=== PATIENT | female | born 1990 | race Caucasian/White ===

== ENCOUNTER → 2017-10-28 11:29 | Outpatient (CLI) | payer MEDICAID, SELFPAY ==
[2017-10-28 12:19] LABS: Absolute Lymphocyte Count 2.61 X10^3/ul (0.83-4.51); Absolute Neutrophil Count 4.8 X10^3/uL (2.0-7.7); Basophil# 0.05 X10^3/uL; Basophil% 0.6 % (0-1); Eosinophil# 0.11 X10^3/uL; Eosinophils% 1.4 % (0-5); Hematocrit 43.1 % (37-47); Hemoglobin 14.6 g/dl (12.0-15.0); Lymphocyte # 2.61 X10^3/ul (4.0); Lymphocyte % 32.1 % (19-41); Mean Corp Hgb Conc 33.9 g/gl (32-36); Mean Corpuscular Hgb 28.1 pg (27.0-32.0); Mean Platelet Vol. 10.8 fl (6.2-12.0); Monocyte# 0.57 X10^3/uL; Neutrophil # 4.78 X10^3/uL (2.7-7.7); Neutrophil % 58.8 % (47-70); POSITIVE COUNT NO; POSITIVE DIFFERENTIAL NO; POSITIVE MORPHOLOGY NO; Platelet Count 352 K/mm3 (150-450); RBC Distribution Width CV 13.1 % (11.6-14.6); RBC Distribution Width SD 40.4 fl (35.1-43.9); Red Blood Count 5.19 M/mm3 (4.2-5.4); White Blood Count 8.1 K/mm3 (4.4-11.0)
[2017-10-28 12:36] LABS: Hemoglobin A1c 5.2 % (4.2-6.3)
[2017-10-28 12:40] LABS: ALB/GLOB Ratio 0.8 RATIO (0.9-2.4); AST(SGOT) 15 U/L (15-37); Alanine Aminotransfer ALT/SGPT 19 U/L (13-56); Albumin, Serum 3.3 g/dL (3.2-5.0); Alkaline Phosphatase 99 U/L (45-117); Anion Gap 8 (5-15); BUN 9 mg/dL (7-18); BUN/Creat Ratio 12.1 RATIO (10-20); Calcium,Total 8.4 mg/dL (8.5-10.1); Chloride 107 mmol/L (98-107); Cholesterol 151 mg/dL (200); Creatinine, Serum 0.74 mg/dL (0.55-1.02); EST Glomerular Filtration Rate 101 mL/min (>60); Est Glom Filt Rate - Afr Amer 122 mL/min (>60); Globulin 4.3 g/dL (2.2-4.2); Glucose 83 mg/dL (74-106); High Density Lipoprotein 32 mg/dL; Potassium 4.1 mmol/L (3.5-5.1); Protein, Total 7.6 g/dL (6.4-8.2); Sodium Level 140 mmol/L (136-145); T4 Free Direct 1.05 ng/dL (0.76-1.46); Triglycerides 91 mg/dL; Very Low Density Lipoprotein 18 mg/dL (5-40)
== END ==
PROVIDERS: Family Provider Internal Medicine; PCP Internal Medicine; Visit Provider Internal Medicine
DX: E28.2 Polycystic ovarian syndrome (principal); R73.03 Prediabetes; D64.9 Anemia, unspecified
CPT/HCPCS: 36415; 80053; 80061; 83036; 84439; 84443; 85025

== ENCOUNTER → 2018-03-17 10:51 | Outpatient (CLI) | payer BC, SELFPAY ==
[2018-03-17 15:49] VITALS: BMI 36.9
== END ==
PROVIDERS: Family Provider Internal Medicine; PCP Internal Medicine; Referring Provider Nurse Practitioner Family; Visit Provider Nurse Practitioner Family
DX: J02.9 Acute pharyngitis, unspecified (principal)
CPT/HCPCS: 87070; 87077; 87186

== ENCOUNTER → 2018-04-14 17:24 | Outpatient (CLI) | payer BC, SELFPAY ==
[2018-04-14 15:06] VITALS: BMI 36.9
[2018-04-19 13:21] LABS: HPV Reflexed? NOT INDICATED
--- OUTSIDE RECORDS SUMMARY | 2018-06-19 16:40 | XMS RPT_ITS ---
:1990 Author Organization OHIP Support Name Relationship Address Phone [employer] Unavailable [address] + [place] [address] MELVI JOIE Unavailable [address] [place] [address] [employer] Unavailable [address] + [place] [address] MELVI, JOIE Unavailable [address] [place] [address] [employer] Unavailable [address] + [place] [address] MELVI, JOIE Unavailable [address] + [place] [address] [employer] Unavailable [address] + [place] [address] MELVI, JOIE Unavailable [address] + [place] [address] [employer] Unavailable [address] + [place] [address] MELVI JOIE Unavailable [address] + [place] [address] [employer] Unavailable [address] + [place] [address] MELVI JOIE Unavailable [address] + [place] [address] [employer] [employer] Unavailable [address] + [place] [address] NABILA OGDENNN Unavailable [address] + [place] [address] [facility] OUTLET Unavailable [address] + [place] [address] JOIE OGDEN Unavailable [address] + [place] [address] [facility] [place] Unavailable Unavailable +. ., [place] . NABILA OGDENNN Unavailable [address] + [place] [address] Care Team Providers Name Role Phone Theresa Santacruz Attending Unavailable Oleghe, Efewongbe Referring Unavailable Noam, Molly Attending Unavailable Oleghe, Efewongbe Primary Care Unavailable [place]olisTheresa flores Referring Unavailable Oleghe, Efewongbe Attending Unavailable Oleghe, Efewongbe Referring Unavailable Oleghe, Efewongbe Attending Unavailable Oleghe, Efewongbe Referring Unavailable Oleghe, Efewongbe Primary Care Unavailable ThermopolisTheresa flores Attending Unavailable Ladarius, Roge Referring Unavailable Oleghe, Efewongbe Primary Care Unavailable Oleghe, Efewongbe Attending Unavailable Oleghe, Efewongbe Referring Unavailable Oleghe, Efewongbe Primary Care Unavailable Oleghe, Efewongbe Attending Unavailable Ladarius, Roge Referring Unavailable Ladarius, Roge Primary Care Unavailable Chi Garcia TRANSITION ADVISOR-C Attending Unavailable GarciaChi TRANSITION ADVISOR-C Referring Unavailable Oleghe, Efewongbe Primary Care Unavailable GarciaChi barba TRANSITION ADVISOR-C Attending Unavailable Oleghe, Efewongbe Referring Unavailable PROBLEMS PROBLEMS DATE TYPE CONDITION / CODE ATTENDING STATUS SOURCE 04/15/2018 Unknown Z12.4 - Encounter Theresa Santacruz Active [place] for screening for Community malignant Hospital neoplasm of Repository cervix / Z12.4(ICD-10) 03/18/2018 Unknown J02.9 - Acute Chi Garcia Active [place] pharyngitis, TRANSITION ADVISOR-C Community unspecified / Hospital J02.9(ICD-10) Repository 10/27/2017 Unknown R73.03 - Oleghe, Active [place] Prediabetes / E[facility] Community R73.03(ICD-10) Hospital Repository 10/27/2017 Unknown E28.2 - Oleghe, Active [place] Polycystic Efewongbe [facility] ovarian syndrome Hospital / E28.2(ICD-10) Repository 10/27/2017 Unknown D64.9 - Anemia, Marvin, Active [place] unspecified / Susan [facility] D64.9(ICD-10) Hospital Repository PROCEDURES PROCEDURES No Procedure Records FoundRESULTS RESULTS INTERNAL MEDICINE Observed: 04/20/2018 Status: F Source: [place] OFFICE VISIT 4:23 PM [facility] REPOSITORY [facility] [address] [place] [address] [place] [address] OFFICE VISIT Date of Service: 04/19/18 MR#: [id number] Acct: [id number] Name: YOLI OGDEN Rep #: [id number] : 1990 Provider: Susan Wong MD Age/Sex: 27/F Location: [facility] Status: Signed Intake Vital Signs04/19/18 Body Mass Index (BMI) 36.9 04/19/18 Height 5 ft 11 in Intake Visit Reasons: sick Chief Complaint: sinus and cough Is patient in pain?: Yes (headache and chest pain with cough ) Allergies grass pollen Allergy (Mild, Verified 04/14/18 15:03) watery eyes, sneezing hydrocodone bitartrate [From Vicodin] Allergy (Verified 04/14/18 15:03) Hives animal long hair Allergy (Intermediate, Uncoded 03/17/18 15:51) Hives Medications metformin 500 mg tablet 500 mg PO QDAY #90 tab 02/11/18 [Rx Confirmed 04/14/18] Is last menstrual period known: Yes PFSH Medical History High blood pressure affecting , antepartum (Chronic) Hidradenitis (Chronic) Asthma (Chronic) Anemia (Chronic) Seasonal allergies (Chronic) PCOS (polycystic ovarian syndrome) (Acute) Surgical History History of cholecystectomy (Acute) Family History Grandfather Angina pectoris Myocardial infarction Hypertension COPD (chronic obstructive pulmonary disease) From [place] CVA (cerebral vascular accident) Grandmother Lupus PCOS (polycystic ovarian syndrome) Diabetes Grandmother Rheumatoid arthritis Cervical cancer Mother Hypertension hormone probms PCOS (polycystic ovarian syndrome) Thyroid cancer Sister Multiple allergies Social History Smoking Status: Never smoker alcohol intake: current alcohol intake frequency: holidays/special occasions only substance use type: does not use caffeine: Yes what type of physical activity do you participate in: none, walking frequency: 3-4 times per week seatbelt use: always do you feel safe at home: Yes additional social history: [employer] 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 Kids have also recently had similar symptoms and negative for influenza. She denies recorded fever. ROS Const Constitutional: Positive for headache(s); no weight change, body ache, chills, fatigue, sleep problems, fever(s), change in appetite, snoring, weakness, frequent falls or excessive sweating Eyes Eyes: No change in vision, eye pain, light sensitivity or blurry vision ENT ENT: Positive for headache(s), ear pain (both), nasal congestion, nasal discharge and sinus pain; no abnormal hearing, tinnitus, sore throat or neck pain Resp Respiratory: Positive for cough Cough: Yes productive and wheezing; no snoring or shortness of breath Cardio Cardiology: No excessive sweating, chest pain at rest, chest pain with exertion, shortness of breath, dyspnea on exertion, palpitations, orthopnea or lightheadedness Gastro GI: No abdominal pain, change in bowel habits, constipation, diarrhea, vomiting, nausea/dyspepsia or cramping Genitourinary-Female: No burning urination, painful urination, urinary incontinence, urinary frequency, abnormal vaginal bleeding, pelvic pain or other Musc Musculoskeletal: No neck pain, abnormal walking, joint pain, back pain, limited range of motion, numbness or tingling Skin Skin: No redness, dry skin, itching, lesions, wounds or rash Neuro Neurology: Positive for headache(s); no weakness, frequent falls, abnormal hearing, abnormal walking, numbness, tingling, abnormal speech, dizziness or memory loss Psych Psychiatric: No change in appetite, No memory loss, No anxiety, No depression, No Thoughts of harming yourself/Others Endo Endocrine: No fatigue, excessive sweating, cold intolerance, increased thirst/drinking, heat intolerance, flushing or increased hunger Aller/Imm Allergy/Immunologic: Positive for wheezing; no itchy eyes, hives or seasonal allergy symptoms Jamil/Lymp Hematologic/Lymphatic: No easy bleeding, easy bruising or enlarged lymph nodes Exam Const General: cooperative, no acute distress Orientation: alert, awake, oriented x3 HENMT Head: atraumatic, normocephalic, normal to inspection Ears: hearing grossly normal bilaterally, TM's normal bilaterally Resp Effort AND Inspection: normal respiratory effort, able to speak in complete sentences Auscultation: Bilateral: Clear to Auscultation Cardio Rate: regular rate Rhythm: regular rhythm Heart Sounds: S1 normal, S2 normal GI Palpation: soft Neuro General: alert, awake, oriented x3, moves all extremities, CN's II-XI intact bilaterally Extrem General: no clubbing, cyanosis or edema Psych Appearance: grossly normal Mental Status: mental status grossly normal Mood: congruent mood Affect: normal affect Assessment AND Plan 1. Upper respiratory infection J06.9 Plan Most likely viral. History of sick contacts (her kids) who also been managed for viral infection. Conservative management discussed. Advised to call the office if she notes worsening or persistent symptoms. 2. Acute sinusitis J01.90 Plan Same as above. Most likely viral. Flonase, ibuprofen 600 mg 3 times daily with food, rest and increased fluid intake recommended. Airborne immune supplements also recommended. Advised to call the office in about 7-10 days if symptoms do not resolve. This note was generated with Zing dictation software. It may contain incorrect words, spelling, and punctuation that were not noted in checking the note before signing. 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 of containers..01 ThinPrep Vial TYPE CODE TESTS RESULT OUT OF RANGE REFERENCE UNITS LAB L7400.0800 . Normal DIAGN Comment Result Comment: NEGATIVE FOR INTRAEPITHELIAL LESION OR MALIGNANCY. LAB L7400.0900 . Normal ADEQ Comment Result Comment: Satisfactory for evaluation. Endocervical and/or squamous metaplastic cells (endocervical component) are present. LAB L7400.1400 . Normal PERFORM Comment Result Comment: Milly Garcia, News Specialist (ASCP) LAB L7400.2575 . Normal TEST METHOD Comment Result Comment: This liquid based ThinPrep(R) pap test was screened with the use of an image guided system. LAB L7400.2600 . Normal . COMM LAB L7400.2700 . Normal PAPSMR Comment Result Comment: The Pap smear is a screening test designed to aid in the detection of premalignant and malignant conditions of the uterine cervix. It is not a diagnostic procedure and should not be used as the sole means of detecting cervical cancer. Both false-positive and false-negative reports do occur. LAB L7400.2800 . Normal HPV RFLX Comment Result Comment: The HPV DNA reflex criteria were not met with this specimen result therefore, no HPV testing was performed. 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 Required: No Is patient in pain?: No Allergies grass pollen Allergy (Mild, Verified 04/14/18 15:03) watery eyes, sneezing hydrocodone bitartrate [From Vicodin] Allergy (Verified 04/14/18 15:03) Hives animal long hair Allergy (Intermediate, Uncoded 03/17/18 15:51) Hives Medications metformin 500 mg tablet 500 mg PO QDAY #90 tab 02/11/18 [Rx Confirmed 04/14/18] doxycycline monohydrate 100 mg capsule 100 mg PO BID #20 cap 04/14/18 [Rx Confirmed 04/14/18] Is last menstrual period known: Yes Last Menstral Period: 04/05/18 Post menopausal: No Patient : No : No Nurse's Note: Pt states she is no longer taking the BC and has been getting migraines. [facility] Medical History High blood pressure affecting , antepartum (Chronic) Hidradenitis (Chronic) Asthma (Chronic) Anemia (Chronic) Seasonal allergies (Chronic) PCOS (polycystic ovarian syndrome) (Acute) Surgical History History of cholecystectomy (Acute) Family History Grandfather Angina pectoris Myocardial infarction Hypertension COPD (chronic obstructive pulmonary disease) From [place] CVA (cerebral vascular accident) Grandmother Lupus PCOS (polycystic ovarian syndrome) Diabetes Grandmother Rheumatoid arthritis Cervical cancer Mother Hypertension hormone probms PCOS (polycystic ovarian syndrome) Thyroid cancer Sister Multiple allergies Social History Smoking Status: Never smoker alcohol intake: current alcohol intake frequency: holidays/special occasions only substance use type: does not use caffeine: Yes what type of physical activity do you participate in: none, walking frequency: 3-4 times per week seatbelt use: always do you feel safe at home: Yes additional social history: [employer] Patient works [employer] Pregancy History 3 Elective abortions Hx Para 2 Spontaneous abortions Past Pregnancies Del. DateName GA/Weeks Outcome Route Bth WeighInfant GeLabor LgtAnesthesiDel LocatProvider FOB t n h a n HPI ANNUAL: Details: YOLI OGDEN is a 27 year old who presents for annual exam. Last PAP: unsure History of abnormal PAP: no Stopped OCP due to migraines. Did not feel that hidradenitis improved with OCP or doxy X 30 days. Not currently sexually active- working in [place] Attempting to lose weight. Female Reproductive History Last Menstral Period: 04/05/18 Questions: Metorrhagia: No, Sexually active: No, Dyspareunia: No, PCB: No ROS Const Constitutional: Denies fatigue, weight gain or weight loss Cardio Card: Denies chest pain Resp Resp: Denies cough or shortness of breath with activity GI GI: Denies abdominal pain, constipation, change in stools, vomiting or bloating : Reports as per HPI; denies urinary frequency, pelvic pain, urinary urgency, vaginal discharge, vaginal itching, urinary incontinence or difficulty urinating Exam Const General: cooperative, healthy appearing, no acute distress, well developed Orientation: alert, oriented to person, oriented to place [facility] Head: normal to inspection Neck Neck: normal visual inspection Thyroid: thyroid normal Lymphatic: no lymphadenopathy noted Chest Breast inspection: normal inspection of the breasts, abnormal inspection of the axilla (active hidradenitis lesion left axilla-raised, erythematous 1cm size) Breast palpation: normal palpation of the breasts, no axillary lymphadenopathy, abnormal palpation of the axilla (consistent with hidradenitis left axilla) Resp Effort AND Inspection: normal respiratory effort GI Palpation: soft, nontender, no masses Rectal Exam: deferred External Female Exam: normal appearance of the urethra, other (hidradenitis lesion on mons) Urethra: normal appearance of the urethra, normal palpation Speculum Exam - Vagina: normal appearance of the vagina, normal vaginal discharge Speculum Exam - Cervix: normal appearance of the cervix Bimanual Exam- Vagina AND Uterus: normal bimanual exam, uterine size normal, uterine shape normal, uterus non-tender Bimanual Exam- Adnexa, other: normal adnexae, no adnexal masses, adnexae non-tender, pelvic support normal Pelvic Support: normal Neuro General: alert, oriented x3 Psych Affect: normal affect Assessment AND Plan Problems 1. Encounter for gynecological examination with abnormal finding Z01.411 2. Hidradenitis suppurativa L73.2 3. Polycystic ovarian syndrome E28.2 Plan Completed breast and pelvic exam Reviewed diet and exercise Pap thin prep pap with reflex HPV Contraception currently not sexually active, [place] . Will use condoms if needed Rx doxy 100mg bid X 10days for current outbreak, warm compresses Will see dermatology. RTO 1 year, prn with problems Theresa Santacruz [employer]ISION ROAD[employer] Medications New: Coding Level of Care Code Off vis,est,prev 18-39yrs Diagnoses Encounter for gynecological examination with abnormal finding Z01.411 Gynecological examination findings: abnormal findings PRESENT Hidradenitis suppurativa L73.2 Polycystic ovarian syndrome E28.2 04/14/18 2117 <Electronically signed by Theresa CASTILLO> Date Theresa CASTILLO Cosigner Signature: Date (if applicable) CC: INTERNAL MEDICINE Observed: 03/18/2018 Status: F Source: [place] OFFICE VISIT 12:18 PM [facility] [place] [address] [place] [address] OFFICE VISIT Date of Service: 03/17/18 MR#: [id number] Acct: [id number] Name: YOLI OGDEN Rep #: [id number] : 1990 Provider: Chi Garcia NP Age/Sex: 27/F Location: [facility] Status: Signed Intake Vital Signs03/17/18 Height 5 ft 11 in 03/17/18 Weight: 265 lb 03/17/18 Body Mass Index (BMI) 36.9 03/17/18 Blood Pressure 112/81 H Intake Visit Reasons: sick Chief Complaint: sore throat, cough x 3 weeks Is patient in pain?: No Allergies grass pollen Allergy (Mild, Verified 03/17/18 15:51) watery eyes, sneezing hydrocodone bitartrate [From Vicodin] Allergy (Verified 03/17/18 15:51) Hives animal long hair Allergy (Intermediate, Uncoded 03/17/18 15:51) Hives Medications metformin 500 mg tablet 500 mg PO QDAY #90 tab 02/11/18 [Rx Confirmed 03/17/18] codeine 10 mg-guaifenesin 100 mg/5 mL oral liquid See Rx Instructions PO Q6H PRN #120 ml 03/17/18 [Rx Confirmed 03/17/18] ibuprofen 600 mg tablet 600 mg PO TID PRN #30 tab 03/17/18 [Rx Confirmed 03/17/18] lidocaine 2 % mucosal solution 15 ml MUCOUS MEMBRANE BID-QID PRN #100 ml 03/17/18 [Rx Confirmed 03/17/18] norgestimate 0.25 mg-ethinyl estradiol 35 mcg tablet 1 tab PO DAILY 03/17/18 [History Confirmed 03/17/18] PFS Medical History High blood pressure affecting , antepartum (Chronic) Hidradenitis (Chronic) Asthma (Chronic) Anemia (Chronic) Seasonal allergies (Chronic) PCOS (polycystic ovarian syndrome) (Acute) Surgical History History of cholecystectomy (Acute) Family History Grandfather Angina pectoris Myocardial infarction Hypertension COPD (chronic obstructive pulmonary disease) From [employer] [place] CVA (cerebral vascular accident) Grandmother Lupus PCOS (polycystic ovarian syndrome) Diabetes Grandmother Rheumatoid arthritis Cervical cancer Mother Hypertension hormone probms PCOS (polycystic ovarian syndrome) Thyroid cancer Sister Multiple allergies Social History Smoking Status: Never smoker alcohol intake: current alcohol intake frequency: holidays/special occasions only substance use type: does not use caffeine: Yes what type of physical activity do you participate in: none, walking frequency: 3-4 times per week seatbelt use: always do you feel safe at home: Yes additional social history: [facility] [employer] 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 She has a past medical history as listed above. The patient states that she was initially seen at an urgent care 3 weeks ago and tested positive for strep throat and was diagnosed with a bilateral ear infection, she was treated with a course of amoxicillin for a week and continued to have a sore throat so she was seen again at the urgent care 2 weeks ago and was placed on another week of amoxicillin. She states that since then she continues to have a sore throat which has sharp at times when she swallows, and she continues to have a productive cough of yellow to clear sputum. She admits to occasional nasal congestion and sinus pressure as well. She denies any sick contacts. She has been taking [id number] Mucinex with mild relief. She denies any other aggravating or relieving factors. The patient otherwise denies any fever, chills, nausea, vomiting, shortness of breath, chest pain or pressure, palpitations, orthopnea, lower extremity edema, syncope or presyncopal episodes. ROS Const Constitutional: No chills, fatigue, fever(s), frequent falls, malaise, weakness, sleep problems or change in appetite Eyes Eyes: No blurry vision, change in vision, double vision, discharge or visual disturbances ENT ENT: Positive for sore throat, difficulty swallowing, post nasal drip, nasal congestion, sinus pressure and facial pain; no abnormal hearing, ear pain, ear pressure, tinnitus or dizziness/vertigo Resp Respiratory: Positive for cough Cough: Yes productive and change in phlegm color (yellow/green); no shortness of breath or wheezing Cardio Cardiology: No chest pain at rest, chest pain with exertion, shortness of breath, dyspnea on exertion, generalized swelling, irregular heart rhythm, lightheadedness, orthopnea, fast heart rate or palpitations Gastro GI: Positive for difficulty swallowing; no abdominal pain, change in bowel habits, constipation, diarrhea, nausea/dyspepsia or vomiting Genitourinary-Female: No difficulty urinating, burning urination, painful urination, urinary incontinence, urinary frequency, urinary urgency, urinary hesitancy, urinary retention, Frequent nighttime urination/ nocturia, sexual problems, genital lesions, abnormal vaginal bleeding, pelvic pain, vaginal dryness, vaginal odor or Vaginal Itching Musc Musculoskeletal: No joint pain, back pain, joint swelling, limited range of motion, numbness, tingling or muscle weakness Skin Skin: No change in skin color, itching, rash or wounds Breast Breast: No breast lump or breast pain Neuro Neurology: No frequent falls, weakness, visual disturbances, abnormal hearing, numbness, tingling, unsteady gait/balance, dizziness, loss of vision or memory loss Psych Psychiatric: No change in appetite, No memory loss, No anxiety, No depression, No Thoughts of harming yourself/Others Endo Endocrine: No fatigue, heat intolerance, increased thirst/drinking, increased hunger or increased urination Aller/Imm Allergy/Immunologic: No wheezing, itchy eyes or seasonal allergy symptoms Jamil/Lymp Hematologic/Lymphatic: No easy bleeding, easy bruising or enlarged lymph nodes Exam Const General: cooperative, comfortable, no acute distress Nutritional Appearance: average body habitus, well nourished Orientation: alert, oriented x3 Limitations: mental status not altered [facility] Head: normal to inspection Ears: hearing grossly normal bilaterally, TM's normal bilaterally Nose: external nose normal, nasal mucous membranes and turbinates normal Face and sinus: sinus tenderness (mild) maxillary Mouth: oral mucosae normal Teeth and gingiva: dentition normal Throat: posterior oropharynx abnormal (slight) erythema Neck Neck: no lymphadenopathy Resp Effort AND Inspection: normal respiratory effort, able to speak in complete sentences, normal respiratory pattern, symmetric chest movement, no audible wheezes, no cough Auscultation: Bilateral: Clear to Auscultation Cardio Palpation: normal PMI Rate: regular rate Heart Sounds: S1 normal, S2 normal, normal S1 and S2, no click, no gallops, no murmurs, no rubs Musc Musculoskeletal: No joint tenderness, decreased ROM or muscle weakness Skin General: no rashes or lesions noted, elasticity normal, turgor normal Lesions: no lesions Rashes: no rashes Neuro General: alert, awake, oriented x3, CN's II-XI intact bilaterally Speech: speech normal Gait: normal gait Motor: muscle tone normal throughout Extrem General: normal to inspection, normal gait, no edema, no pedal edema Psych Appearance: grossly normal Mental Status: mental status grossly normal Affect: normal affect Attitude: cooperative Thought Process: normal Results BMSRAPIDSTREPA Office Rapid Strep A Negative Last Edit by Melita Kennedy on 03/17/18 16:19 Assessment AND Plan Problems 1. Acute pharyngitis J02.9 2. Cough R05 Plan Rapid strep test done in office which was negative, backup culture sent to lab for evaluation. Discussed with patient that given the fact that she was treated with 2 weeks of antibiotics and she continues to have symptoms that most likely her symptoms are viral and that is why they are persisting. Discussed conservative management of treating her symptoms with cough syrup with codeine, ibuprofen for sore throat and pain relief, and viscous lidocaine as needed for sore throat as well. Discussed that she should not drive or operate heavy machinery and should only use the cough syrup with codeine at night when the cough is keeping her awake. Did discuss with patient that a post viral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 [address](RXNORM) Hospital Repository 04/14/2018 Drug grass watery eyes, [place] [facility] Allergy/973403621( pollen/[id number] sneezing [facility] SNOM[facility]) 4(RXNORM) Hospital Repository 03/17/2018 Miscellaneous animal long hair Hives [place] Allergy/317800039( [facility] SNOMED [facility]) Hospital Repository ENCOUNTERS ENCOUNTERS ADMIT/DISCHARGE ACCOUNT ADMITTING ENCOUNTER LOCATION SOURCE NUMBER CLASS 04/19/2018/ [id number] Ambulatory BMSBuilding:B [place] 9 5 [place] Repository 04/14/2018 [id number] Ambulatory [place] 1 [facility] ing:LABSPEC Repository 04/14/2018/ [id number] Ambulatory BMSBuilding:B [place] 9 2 [place].[facility] Repository 03/17/2018/ [id number] Ambulatory BMSBuilding:B [place] 8 1 [place].[facility] Repository 03/17/2018 [id number] Ambulatory [place] 7 [facility] ing:LABSPEC Repository 11/24/2017/ [id number] Ambulatory BMSBuilding:B [place] 8 5 [place].[facility] Repository 11/18/2017/ [id number] Ambulatory BMSBuilding:B [place] 8 0 [facility] Repository 10/28/2017 [id number] Ambulatory [place] 1 [facility] ing:MTLAB Repository 10/27/2017/ [id number] Ambulatory BMSBuilding:B [place] 8 7 [place].[facility] Repository PAYERS PAYERS ENCOUNTER GUARANTOR PAYER SUBSCRIBER SOURCE 04/19/2018 YOLI Long Primary YOLI D [place] [id number] Insurance:ANTHEMPolic PITREDOB: [facility] Number: [id number] [id number] Repository [address]Vdj: [phone] Date:2840-02-50[phone] ([facility] [id number], [place] [address]FV: 04/19/2018 Secondary NOT GIVENUNK [facility] Insurance:SELF PAY [facility] Number: Effective Repository Date:2018-04-19 04/14/2018 YOLI D Primary YOLI D [place] [id number] Insurance:ANTHEMPolic PITREDOB: [facility] Number: [id number] [id number] Repository [address]Zip: (98) Date:9968-24-69[phone] () 825905EOGWCPPGEOFF JOHNSON [address]WV: 04/14/2018 Secondary NOT GIVENUNK [place] Insurance:SELF PAY [facility] Number: Effective Repository Date:2018-04-14 04/14/2018 YOLI D Primary YOLI D [place] [id number] Insurance:ANTHEMPolic PITREDOB: Community VIOLETTA DICKERSON y Number: [id number] [id number] Repository [address]Zhd: ([phone]) Date:6499-14-54[phone] () GEOFF DAVIS [address]UF: 04/14/2018 Secondary NOT GIVENUNK [place] Insurance:SELF PAY [facility] Number: Effective Repository Date:2018-04-14 03/17/2018 YOLI D Primary YOLI D Nestor [id number] Insurance:ANTHEMPolic PITREDOB: Community VIOLETTA DICKERSON y Number: [id number] [id number] Repository [address]Ihs: ([phone]) Date:5414-22-32MF [phone] () 928380QTGKMXDGEOFF JOHNSON [address]KY: 03/17/2018 Secondary NOT GIVENUNK [place] Insurance:SELF PAY [facility] Number: Effective Repository Date:2018-03-17 03/17/2018 YOLI D Primary YOLI D [place] [id number] Insurance:ANTHEMPolic PITREDOB: Community VIOLETTA DICKERSON y Number: [id number] [id number] Repository [address]Dfi: ([phone]) Date:9903-18-20HO [phone] () [id number], [place] [address]EX: 03/17/2018 Secondary NOT GIVENUNK [facility] Insurance:SELF PAY [facility] Number: Effective Repository Date:2018-03-17 11/24/2017 YOLI D Primary YOLI D [place] [id number] Insurance:CARESOURCEP PITREDOB: [facility] Number: [id number] [id number] Repository [address]Rjo: ([phone]) Date:2017-10-27 O [phone] () [address]ATTN: [place] [address]FL: 11/24/2017 Secondary NOT GIVENUNK [place] Insurance:SELF PAY [facility] Number: Effective Repository Date:2017-11-12 11/18/2017 OYLI D Primary YOLI D [place] [id number] Insurance:CARESOURCEP PITREDOB: [facility] Number: [id number] [place], [place] [id number] Repository [address]Kou: ([phone]) Date:2017-09-14P O [phone] () [address]ATTN: [place] [address]UV: 11/18/2017 Secondary NOT GIVENUNK [place] Insurance:SELF PAY [facility] Number: Effective Repository Date:2017-11-18 10/28/2017 YOLI D Primary YOLI D [place] [id number] Insurance:CARESOURCEP PITREDOB: [facility] Number: [id number], [place] [id number] Repository [address]Utk: (989) Date:2017-10-28P O [phone] () [address]ATTN: [place] [address]YH: 10/28/2017 Secondary NOT GIVENUNK [place] Insurance:SELF PAY [facility] Number: Effective Repository Date:2017-10-28 10/27/2017 YOLI D Primary YOLI D [place] [id number] Insurance:CARESOURCEP PITREDOB: [facility] Number: [id number] [place], [place] [id number] Repository [address]Htz: [phone]) Date:2017-10-12P O [phone] () [address]ATTN: [place] [address]HR: 10/27/2017 Secondary NOT GIVENUNK [facility] Insurance:SELF PAY [facility] Number: Effective Repository Date:2017-10-27
== END ==
PROVIDERS: Family Provider Internal Medicine; PCP Internal Medicine; Referring Provider Nurse Practitioner Women's Health; Visit Provider Nurse Practitioner Women's Health
DX: Z12.4 Encounter for screening for malignant neoplasm of cervix (principal)
CPT/HCPCS: 87624; 88175; G0145

== ENCOUNTER → 2018-07-20 11:24 | Outpatient (CLI) | payer BC, SELFPAY ==
[2018-07-20 10:56] VITALS: BMI 37.9
[2018-07-20 13:01] LABS: ALB/GLOB Ratio 0.8 RATIO (0.9-2.4); AST(SGOT) 13 U/L (15-37); Alanine Aminotransfer ALT/SGPT 16 U/L (13-56); Albumin, Serum 3.6 g/dL (3.2-5.0); Alkaline Phosphatase 96 U/L (45-117); Anion Gap 5 (5-15); BUN 6 mg/dL (7-18); BUN/Creat Ratio 7.9 RATIO (10-20); Calcium,Total 8.4 mg/dL (8.5-10.1); Chloride 105 mmol/L (98-107); Creatinine, Serum 0.76 mg/dL (0.55-1.02); EST Glomerular Filtration Rate 98 mL/min (>60); Est Glom Filt Rate - Afr Amer 119 mL/min (>60); Globulin 4.3 g/dL (2.2-4.2); Glucose 102 mg/dL (74-106); Magnesium 2.2 mg/dL (1.6-2.6); Potassium 3.9 mmol/L (3.5-5.1); Protein, Total 7.9 g/dL (6.4-8.2); Sodium Level 136 mmol/L (136-145); Thyroid Stim Hormone (TSH) 1.25 uIU/mL (0.358-3.74)
== END ==
PROVIDERS: Family Provider Internal Medicine; PCP Internal Medicine; Visit Provider Nurse Practitioner Family
DX: R00.0 Tachycardia, unspecified (principal); R00.2 Palpitations
CPT/HCPCS: 36415; 80053; 83735; 84443

== ENCOUNTER → 2018-07-20 12:40 | Outpatient (CLI) | payer BC, SELFPAY ==
[2018-07-20 10:56] VITALS: BMI 37.9
--- NOTE | 2018-07-20 12:42 | EKG12_ITS ---
Test Reason : PALPS Blood Pressure : / mmHG Vent. Rate : 101 BPM Atrial Rate : 101 BPM P-R Int : 142 ms QRS Dur : 070 ms QT Int : 336 ms P-R-T Axes : 026 -22 025 degrees QTc Int : 435 ms Sinus tachycardia Leftward axis Confirmed by ABIGAIL MOY, JUAN ([id number]), development editor SHORTY GUDINO ([id number]) on 07/21/2018 1:38:18 PM Referred By: Chi Garcia Confirmed By:JUAN HAYES MD
== END ==
PROVIDERS: Family Provider Internal Medicine; PCP Internal Medicine; Referring Provider Nurse Practitioner Family; Visit Provider Nurse Practitioner Family
DX: R00.2 Palpitations (principal); R00.0 Tachycardia, unspecified; R06.00 Dyspnea, unspecified
CPT/HCPCS: 93005; 93225; 93226

== ENCOUNTER → 2018-07-21 12:08 | Outpatient (CLI) | payer BC, SELFPAY ==
[2018-07-21 10:40] VITALS: BMI 37.9
== END ==
PROVIDERS: Family Provider Internal Medicine; PCP Internal Medicine; Referring Provider Nurse Practitioner Family; Visit Provider Nurse Practitioner Family
DX: J02.9 Acute pharyngitis, unspecified (principal)
CPT/HCPCS: 87070; 87077

== ENCOUNTER 2018-07-21 19:05 | Emergency (ER) | payer BC, SELFPAY ==
[2018-07-21 10:40] VITALS: BMI 37.9
[2018-07-21 19:07] VITALS: BP 135/91; PULSE 131; RESP 27; TEMP 37.3; O2SAT 98; BMI 39.0
[2018-07-21 19:17] VITALS: BP 103/85; PULSE 110; RESP 23; O2SAT 98
--- NOTE | 2018-07-21 19:32 | RAD_ITS ---
STUDY: X-RAY CHEST REASON FOR EXAM: Female, 27 years old. Chest pain. TECHNIQUE: Portable chest. COMPARISON: None. FINDINGS: The lungs are clear and expanded. There is no demonstrated pleural abnormality. Normal size heart. Normal mediastinum and irwin. Normal visualized pulmonary arteries. Normal visualized aortic arch and descending thoracic aorta. Normal visualized thoracic spine. Normal visualized ribs, clavicles, and shoulders. There is no demonstrated abnormality of the visualized soft tissue structures of the upper abdomen. RAD/Chest 1 View (Portable) IMPRESSION: Normal x-ray examination of the chest. Electronically Signed: Jaz Aguero MD at 20:07 EDT Tel , Service support ,
--- NOTE | 2018-07-21 19:32 | EKG12_ITS ---
Test Reason : CP Blood Pressure : / mmHG Vent. Rate : 121 BPM Atrial Rate : 121 BPM P-R Int : 136 ms QRS Dur : 072 ms QT Int : 306 ms P-R-T Axes : 019 -28 038 degrees QTc Int : 434 ms Sinus tachycardia Otherwise normal ECG Confirmed by ABIGAIL MOY, JUAN ([id number]), slot editor SHORTY GUDINO ([id number]) on 07/26/2018 10:52:16 AM Referred By: MR Confirmed By:JUAN HAYES MD
[2018-07-21 19:42] VITALS: TEMP 37.4
[2018-07-21] MEDS: Ondansetron 4 MG/2 ML Vial IV (19:45)
[2018-07-21] MEDS: Ketorolac 30 MG/ML Syringe IV (19:45)
[2018-07-21] MEDS: 0.9% Normal Saline 1,000 ML 1000 ML IV (19:45)
[2018-07-21 19:48] LABS: Absolute Lymphocyte Count 2.55 X10^3/ul (0.83-4.51); Absolute Neutrophil Count 13.4 X10^3/uL (2.0-7.7); Basophil# 0.05 X10^3/uL; Basophil% 0.3 % (0-1); Eosinophil# 0.14 X10^3/uL; Eosinophils% 0.8 % (0-5); Hematocrit 43.8 % (37-47); Lymphocyte # 2.55 X10^3/ul (4.0); Lymphocyte % 14.6 % (19-41); Mean Corp Hgb Conc 34.2 g/gl (32-36); Mean Corpuscular Hgb 28.5 pg (27.0-32.0); Mean Corpuscular Volume 83.1 fL (81-99); Mean Platelet Vol. 10.1 fl (6.2-12.0); Monocyte# 1.28 X10^3/uL; Monocyte% 7.3 % (0-10); Neutrophil # 13.38 X10^3/uL (2.7-7.7); Neutrophil % 76.8 % (47-70); POSITIVE COUNT NO; POSITIVE DIFFERENTIAL NO; POSITIVE MORPHOLOGY NO; Platelet Count 325 K/mm3 (150-450); RBC Distribution Width CV 12.9 % (11.6-14.6); RBC Distribution Width SD 39.1 fl (35.1-43.9); Red Blood Count 5.27 M/mm3 (4.2-5.4); White Blood Count 17.4 K/mm3 (4.4-11.0)
[2018-07-21 19:58] LABS: Anion Gap 5 (5-15); BUN 8 mg/dL (7-18); BUN/Creat Ratio 9.3 RATIO (10-20); Calcium,Total 8.6 mg/dL (8.5-10.1); Chloride 105 mmol/L (98-107); Creatinine, Serum 0.86 mg/dL (0.55-1.02); EST Glomerular Filtration Rate 85 mL/min (>60); Est Glom Filt Rate - Afr Amer 103 mL/min (>60); Estimated Creatinine Clearance 111.77 ml/min; Glucose 93 mg/dL (74-106); Potassium 3.8 mmol/L (3.5-5.1); Sodium Level 137 mmol/L (136-145)
[2018-07-21 20:01] LABS: D-Dimer Quantitative (DVT/PE) 0.36 FEU/ug/m (0.27-0.49)
[2018-07-21 20:04] LABS: Internal QC Validated? YES +Cl - CLEAR BKGD; Pregnancy, Serum, hCG Quali. NEGATIVE Negative
[2018-07-21 20:25] VITALS: BP 109/72; PULSE 90; RESP 21; TEMP 37.1; O2SAT 95
--- NOTE | 2018-07-21 20:51 | ED.VISSUMM ---
- ER Visit Summary Date of Service: 07/21/18 Chief Complaint: Chest pain History of Present Illness: The patient is a [address] Wong. She reports that she has chest pain began 3 days ago. Initially it was an intermittent sharp pain. However, it became a constant pain last night at 8 PM. She describes the pain is 10 out of 10 at worst and 6 out of 10 currently. States her pain is worsened by movement of her torso or arm. Is relieved by remaining still. She has had nausea, but no vomiting. She has been diaphoretic and short of breath at times. She had a similar episode approximately 1 month ago and actually has a Holter monitor on now. On review of system patient reports she had a fever to 101.3 degrees. She had chills. She has a sore throat is 4-10 severity. She denies any cough. No dysuria or frequency. No rash. No other complaints. Physical Examination: Vitals: Stable. Afebrile. General: Well-nourished and well-developed. Head: Normocephalic atraumatic. Neck: Supple, no lymphadenopathy. No JVD. Nontender. Cardiovascular: Regular rate and rhythm. No murmurs. Respiratory: No respiratory distress. Clear to auscultation bilaterally. Mild tenderness palpation over costochondral margin on the left that does reproduce her pain. Abdominal: Soft, nontender, nondistended, normal bowel sounds. No guarding, rebound, or peritoneal signs. Back: Nontender. Extremities: Nontender, no edema. Skin: Normal color, no rash. Neurologic: Alert and oriented ?3. Cranial nerves II through XII are intact. Normal strength and sensation. Psych: Normal affect. Test Results: EKG is sinus tach [address] changes. Troponin is negative despite 24 hours of constant pain. D-dimer was negative. Factor test was negative. UA was negative. Chem-7 is normal. CBC is remarkable for a white count of 17.4 with 77 segmented neutrophils and 15 lymphocytes. Clinical Impression(s) from Imaging Studies Chest X-Ray 07/21/18 19:32 IMPRESSION: Normal x-ray examination of the chest. Electronically Signed: Jaz Aguero MD at 20:07 EDT Tel , Service support , Emergency Department Course and Treatment: Patient was treated with a dose of Toradol and Zofran IV. She is resting comfortably. Treatment Plan: Patient be discharged with Zofran. Instructed to follow-up her primary care physician 1-2 days if not improving. Return to the emergency department for any worsening symptoms. Disposition: To home in improved and stable condition. Impression: 1. Atypical chest pain. 2. CATHI score of 0. This note was generated with [employer] dictation software. It may contain incorrect words, spelling, and punctuation that were not noted in review of the chart prior to signing ED Disposition - Plan for ED Patient: Disposition: Home or Assisted Living Instructions: ED Chest Pain Atypical Unkn Cause Prescriptions: Ondansetron [Zofran Odt] 4 mg PO Q8H PRN PRN #10 tablet PRN Reason: Nausea Naproxen [Naprosyn] 500 mg PO BID #14 tablet Referrals: Susan Wong MD [Primary Care Provider] - 1-2 Days if not improving
[2018-07-21 21:05] VITALS: BP 119/71; PULSE 85; PULSE 95; RESP 21; RESP 23; TEMP 37.1; O2SAT 93
[2018-07-21 21:10] LABS: Mucous, Urine 0 SEEN /hpf (<or=2+); Red Blood Cells-Urine 0 SEEN /hpf (0-5)
[2018-07-21 21:13] LABS: Color, Urine Yellow (Yellow); Glucose, Dipstick Normal (Normal); Ketone-Dipstick 50 mg/dl (Negative); Leukocyte Esterase-Dipstick 25 /ul (Negative); Nitrite-Dipstick Negative (Negative); Occult Blood-Urine 10 /ul (Negative); Protein-Dipstick 15 mg/dl (Negative); Specific Gravity, Urine 1.015 (1.002-1.030); Urine Bilirubin Dipstick Negative (Negative); Urine Clarity Clear (Clear); Urine Urobilinogen 1 mg/dl (Normal); Urine pH 6.5 (5.0 - 8.0)
[2018-07-21 21:24] LABS: Bacteria RARE /hpf (None Seen); Squamous Epithelial Cells - UA 0-5 SEEN /hpf (5-10); White Blood Cells 0-5 SEEN /hpf (0-5)
[2018-07-21 22:04] VITALS: BP 100/67; PULSE 92; RESP 25; TEMP 37.4; O2SAT 94
--- NOTE | 2018-07-21 22:14 | ED.RN ---
PT SIGNS RELEASE OF RECORDS TO TAKE HER INFORMATION HOME WITH HER.
== END 2018-07-21 22:14 | disposition home or self-care (01) ==
LOC: ED 19:53
PROVIDERS: Emergency Provider Emergency Medicine; Family Provider Internal Medicine; PCP Internal Medicine
DX: R07.89 Other chest pain (principal); R50.9 Fever, unspecified; R51 Headache; J02.9 Acute pharyngitis, unspecified; R11.0 Nausea; R06.00 Dyspnea, unspecified
CPT/HCPCS: 71045; 80048; 81001; 84484; 84703; 85025; 85379; 93005; 96361; 96374; 96375; 99284; J7030; A4216; J2405

== ENCOUNTER → 2018-08-13 08:43 | Outpatient (CLI) | payer BC, SELFPAY ==
[2018-08-13 08:14] VITALS: BMI 39.4
[2018-08-13 12:28] LABS: Internal QC Validated? YES +Cl - CLEAR BKGD; Pregnancy, Urine Negative Negative
== END ==
PROVIDERS: Family Provider Internal Medicine; PCP Internal Medicine; Visit Provider Nurse Practitioner Family
DX: N92.6 Irregular menstruation, unspecified (principal)
CPT/HCPCS: 81025

== ENCOUNTER → 2020-04-03 12:09 | Outpatient (CLI) | payer OTHER, MEDICAID, SELFPAY ==
[2018-12-07 09:32] VITALS: BMI 39.4
[2020-04-03 13:48] LABS: Absolute Lymphocyte Count 1.97 X10^3/uL (0.83-4.51); Absolute Neutrophil Count 6.2 X10^3/uL (2.0-7.7); Basophil# 0.03 X10^3/uL; Basophil% 0.3 % (0-1); Eosinophil# 0.02 X10^3/uL; Eosinophils% 0.2 % (0-5); Hematocrit 43.7 % (37-47); Hemoglobin 14.5 g/dL (12.0-15.0); Lymphocyte # 1.97 X10^3/ul (4.0); Lymphocyte % 22.8 % (19-41); Mean Corp Hgb Conc 33.2 g/dL (32-36); Mean Corpuscular Hgb 27.5 pg (27.0-32.0); Mean Corpuscular Volume 82.8 fL (81-99); Monocyte# 0.44 X10^3/uL; Monocyte% 5.1 % (0-10); NRBC Flagged by Analyzer 0 % (0-5); Neutrophil # 6.15 X10^3/uL (2.7-7.7); Neutrophil % 71.3 % (47-70); Platelet Count 300 K/mm3 (150-450); RBC Distribution Width CV 12.7 % (11.6-14.6); RBC Distribution Width SD 38.4 fl (35.1-43.9); Red Blood Count 5.28 M/mm3 (4.2-5.4); White Blood Count 8.6 K/mm3 (4.4-11.0)
[2020-04-03 14:37] LABS: HIV - WCH Non-Reactive (Nonreactive); Hepatitis B Surface Antigen Non-Reactive (Nonreactive); Hepatitis C Antibody Non-Reactive (Nonreactive); Rubella IgG Reactive (Nonreactive)
[2020-04-05 01:36] LABS: Prenatal RPR NONREACTIVE (NONREACTIVE)
[2020-04-05 03:07] LABS: Chlamydia By Nucleic Acid AMP Negative (Negative)
[2020-04-05 15:15] LABS: Gonococcus By Nucleic Acid AMP Negative (Negative)
== END ==
PROVIDERS: PCP Internal Medicine; Visit Provider Obstetrics & Gynecology
DX: Z34.81 Encounter for supervision of other normal pregnancy, first trimester (principal); Z11.3 Encounter for screening for infections with a predominantly sexual mode of transmission
CPT/HCPCS: 36415; 85025; 86703; 86762; 86803; 87077; 87086; 87088; 87186; 87340; 87491; 87591

== ENCOUNTER → 2020-04-06 10:57 | Outpatient (CLI) | payer OTHER, MEDICAID, SELFPAY ==
[2018-12-07 09:32] VITALS: BMI 39.4
[2020-04-06 14:10] LABS: Glucose Challenge Gest 1H 50g 98 mg/dL (70-140)
== END ==
PROVIDERS: PCP Internal Medicine; Visit Provider Obstetrics & Gynecology
DX: Z34.82 Encounter for supervision of other normal pregnancy, second trimester (principal)
CPT/HCPCS: 36415; 82950

== ENCOUNTER → 2020-07-12 10:21 | Outpatient (CLI) | payer OTHER, MEDICAID, SELFPAY ==
[2018-12-07 09:32] VITALS: BMI 39.4
[2020-07-12 13:18] LABS: Hematocrit 39.5 % (37-47); Mean Corp Hgb Conc 32.9 g/dL (32-36); Mean Corpuscular Hgb 28.9 pg (27.0-32.0); Mean Corpuscular Volume 87.8 fL (81-99); Mean Platelet Vol. 10.8 fl (6.2-12.0); Platelet Count 319 K/mm3 (150-450); RBC Distribution Width CV 13.4 % (11.6-14.6)
[2020-07-12 13:34] LABS: ALB/GLOB Ratio 0.6 RATIO (0.9-2.4); AST(SGOT) 6 U/L (15-37); Alanine Aminotransfer ALT/SGPT 10 U/L (13-56); Albumin, Serum 2.4 g/dL (3.2-5.0); Alkaline Phosphatase 122 U/L (45-117); Anion Gap 5 (5-15); BUN 3 mg/dL (7-18); BUN/Creat Ratio 5.1 RATIO (10-20); Calcium,Total 8.2 mg/dL (8.5-10.1); Chloride 107 mmol/L (98-107); Creatinine, Serum 0.59 mg/dL (0.55-1.02); EST Glomerular Filtration Rate 130 mL/min (>60); Est Glom Filt Rate - Afr Amer 157 mL/min (>60); Globulin 4.2 g/dL (2.2-4.2); Glucose 90 mg/dL (74-106); LDH 124 U/L (84-246); Potassium 3.5 mmol/L (3.5-5.1); Protein, Total 6.6 g/dL (6.4-8.2); Sodium Level 136 mmol/L (136-145)
== END ==
LOC: WOBLAB 10:23
PROVIDERS: PCP Internal Medicine; Visit Provider Obstetrics & Gynecology
DX: O13.9 Gestational [pregnancy-induced] hypertension without significant proteinuria, unspecified trimester (principal); Z3A.00 Weeks of gestation of pregnancy not specified
CPT/HCPCS: 36415; 80053; 83615; 85027

== ENCOUNTER → 2020-07-23 10:29 | Outpatient (CLI) | payer OTHER, MEDICAID, SELFPAY ==
[2018-12-07 09:32] VITALS: BMI 39.4
[2020-07-23 12:02] LABS: Glucose Challenge Gest 1H 50g 106 mg/dL (70-140)
== END ==
PROVIDERS: PCP Internal Medicine; Visit Provider Obstetrics & Gynecology
DX: Z34.83 Encounter for supervision of other normal pregnancy, third trimester (principal); Z67.91 Unspecified blood type, Rh negative
CPT/HCPCS: 36415; 82950; 86850

== ENCOUNTER 2020-09-13 12:40 | Outpatient (CLI) | payer OTHER, MEDICAID, SELFPAY ==
[2018-12-07 09:32] VITALS: BMI 39.4
[2020-09-13 12:57] VITALS: BMI 40.6
[2020-09-13 13:11] VITALS: BP 116/78; PULSE 97; TEMP 36.7
[2020-09-13 13:32] LABS: ROM Internal Control Test YES-OK TO RESULT pt. (Internal QC); ROM Patient Test Negative (Negative)
[2020-09-13 13:49] VITALS: BP 121/70; PULSE 85
[2020-09-13 14:03] LABS: Hematocrit 38.2 % (37-47); Hemoglobin 12.5 g/dL (12.0-15.0); Mean Corp Hgb Conc 32.7 g/dL (32-36); Mean Corpuscular Hgb 27.9 pg (27.0-32.0); Mean Corpuscular Volume 85.3 fL (81-99); Mean Platelet Vol. 10.4 fl (6.2-12.0); Platelet Count 324 K/mm3 (150-450); RBC Distribution Width CV 13.8 % (11.6-14.6); Red Blood Count 4.48 M/mm3 (4.2-5.4); White Blood Count 11.4 K/mm3 (4.4-11.0)
[2020-09-13 15:02] LABS: AST(SGOT) 9 U/L (15-37); Alanine Aminotransfer ALT/SGPT 8 U/L (13-56); Creatinine, Serum 0.66 mg/dL (0.55-1.02); EST Glomerular Filtration Rate 112 mL/min (>60); Est Glom Filt Rate - Afr Amer 136 mL/min (>60); Estimated Creatinine Clearance 137.23 ml/min; Uric Acid 3.1 mg/dL (2.6-6.0)
[2020-09-13 15:03] LABS: LDH 155 U/L (84-246)
--- NOTE | 2020-09-13 22:55 | OB.TRI.NOTE ---
HPI - General HPI Narrative YLOI OGDEN, is a 30 F who presents at 35 5/7 weeks gestsation with c/o leaking of fluid and headache. She has a history of preeclampsia in prior . [facility] Medical History Asthma Borderline diabetes mellitus Hidradenitis High blood pressure affecting , antepartum Obesity (BMI 30-39.9) PCOS (polycystic ovarian syndrome) Polycystic ovarian syndrome Seasonal allergies Sleep apnea Tachycardia Home Medications aspirin 81 mg PO DAILY 09/13/20 [History Last Taken 09/13/20] ondansetron HCl [Zofran] 4 mg PO Q6H PRN 09/13/20 [History Last Taken 09/13/20] prenat.vits,hamida,qin-othw-zlnpr [ #2] tab 09/13/20 [History Last Taken 09/13/20] Allergy/AdvReac Type Severity Reaction Status Date / Time grass pollen Allergy Mild watery Verified 09/13/20 13:23 eyes, sneezing hydrocodone bitartrate Allergy Hives Verified 09/13/20 13:23 [From Vicodin] Sulfa (Sulfonamide Allergy Rash Verified 09/13/20 13:24 Antibiotics) animal long hair Allergy Intermediate Hives Uncoded 12/07/18 09:31 Family History Grandfather Angina pectoris Myocardial infarction Hypertension COPD (chronic obstructive pulmonary disease) From [place] CVA (cerebral vascular accident) Grandmother Lupus PCOS (polycystic ovarian syndrome) Diabetes Grandmother Rheumatoid arthritis Cervical cancer Mother Hypertension hormone probms PCOS (polycystic ovarian syndrome) Thyroid cancer Sister Multiple allergies Surgical History History of cholecystectomy Social History Smoking Status: Never smoker alcohol intake: current alcohol intake frequency: holidays/special occasions only substance use type: does not use caffeine: Yes what type of physical activity do you participate in: none and walking frequency: 3-4 times per week seatbelt use: always do you feel safe at home: Yes additional social history: [employer] Patient works [employer] History 3 Elective abortions Hx Para 2 Spontaneous abortions Hx # Term Pregnancies Ectopic pregnancies Hx # Pregnancies Multiple births # of living children Past Pregnancies Del. Date Name GA/Weeks Outcome Route Bth Weight Infant Gen Labor Lgth Anesthesia Del Locatn Provider FOB Unknown 2010 Bob III (Trip) live - full term 6lbs 12.3oz Male epidural Dr. Aguilera Unknown 2013 [place] 42 live - full term 8lbs 10.5oz Female SM NST FHR Rate Baby A Baseline: 135 Variability:: Moderate Accelerations:: 15 x 15 Decelerations:: None NST Reactive:: Yes FHR Category:: Category I Uterine Activity:: 0-1/10 amid irritability Assessment & Plan (1) 35 weeks gestation of : PLAN: hx preeclampsia Headache mildly improved with Tylenol, BPs wnl Preeclamptic labs obtained and unremarkable (2) False labor before 37 completed weeks of gestation: QUALIFIERS: Trimester: third trimester Qualified Code(s): O47.03 - False labor before 37 completed weeks of gestation, third trimester PLAN: ROM plus negative
== END 2020-09-13 16:05 | disposition home or self-care (01) ==
LOC: WPOUT 12:53 → WP 12:54
PROVIDERS: PCP Internal Medicine; Referring Provider Obstetrics & Gynecology; Visit Provider Obstetrics & Gynecology
DX: O47.03 False labor before 37 completed weeks of gestation, third trimester (principal); O26.893 Other specified pregnancy related conditions, third trimester; R51.9 Headache, unspecified; R73.03 Prediabetes; O99.513 Diseases of the respiratory system complicating pregnancy, third trimester; J45.909 Unspecified asthma, uncomplicated; O99.213 Obesity complicating pregnancy, third trimester; E66.9 Obesity, unspecified; Z87.59 Personal history of other complications of pregnancy, childbirth and the puerperium; Z79.82 Long term (current) use of aspirin; Z79.899 Other long term (current) drug therapy; Z3A.35 35 weeks gestation of pregnancy
CPT/HCPCS: 36415; 59025; 59050; 82565; 83615; 84112; 84450; 84460; 84550; 85027; 99218; G0378

== ENCOUNTER 2020-10-05 05:00 | Inpatient (IN) | payer OTHER, MEDICAID, SELFPAY ==
[2020-10-05] VITALS (33 sets, daily range): BP systolic 111–139; BP diastolic 66–90; PULSE 70–87; RESP 18; TEMP 36.3–37.2; O2SAT 93–99; BMI 40.4
[2020-10-05] MEDS: Lactated Ringers 1,000 ML 150 ML IV (05:30)
[2020-10-05 05:46] LABS: Absolute Lymphocyte Count 1.99 X10^3/uL (0.83-4.51); Basophil# 0.03 X10^3/uL; Basophil% 0.3 % (0-1); Eosinophil# 0.01 X10^3/uL; Eosinophils% 0.1 % (0-5); Hematocrit 38.4 % (37-47); Hemoglobin 12.4 g/dL (12.0-15.0); Lymphocyte # 1.99 X10^3/ul (0.83-4.51); Lymphocyte % 18.7 % (19-41); Mean Corp Hgb Conc 32.3 g/dL (32-36); Mean Corpuscular Hgb 28.1 pg (27.0-32.0); Mean Corpuscular Volume 87.1 fL (81-99); Mean Platelet Vol. 10.8 fl (6.2-12.0); Monocyte# 0.62 X10^3/uL; Monocyte% 5.8 % (0-10); NRBC Flagged by Analyzer 0 % (0-5); Neutrophil # 7.99 X10^3/uL (2.7-7.7); Neutrophil % 74.8 % (47-70); Platelet Count 257 K/mm3 (150-450); RBC Distribution Width CV 14.4 % (11.6-14.6); Red Blood Count 4.41 M/mm3 (4.2-5.4); White Blood Count 10.7 K/mm3 (4.4-11.0)
--- NOTE | 2020-10-05 08:18 | PCM.HP.BLA ---
History and Physical Date of Admission: 10/05/20 Chief complaint: Induction of labor at term History of present illness: 22-year-old 9 weeks and 0 days with TIFFANIE: 10/13/2019 1 x 6-week ultrasound arrives with unstable lie, between breech and vertex. For if breech for induction of labor with unstable lie if vertex. Denies headache, chest pain, shortness of breath, nausea vomiting, right upper quadrant pain. Patient states good movement. is complicated by unstable lie, Rh-, history of preeclampsia, GBS bacteriuria Obstetric history: G1: 09/28/2010 34 weeks male severe preeclampsia G2: 06/13/2013 42 weeks female G3: SAB G4: Current Past medical history: Anxiety Medications: vitamin, Zoloft Past surgical history: [place] tooth extraction, cholecystectomy Allergies: Sulfa Social history: Denies smoking, alcohol use, drug use Family history: Denies history DVT or PE Review of systems: Besides above pertinent positives for review systems performed found to be negative Physical exam: Vitals: Blood pressure 133/90 General: No apparent acute distress HEENT: Normocytic atraumatic no cervical adenopathy Cardiac/respiratory: Nonlabored breathing, no use of accessory muscles Abdomen: Soft, nontender, gravid Pelvic exam: Cervical exam 1/50/-3 Extremities: No peripheral edema normal peripheral pulses Psych: Normal affect normal demeanor nonpressured speech Bedside ultrasound: Vertex position Labs: White blood cells 10.7 hemoglobin 12.4 hematocrit 38.4% platelets 257. Blood type O- Assessment plan: 22-year-old at 39 weeks 0 days with unstable lie found to be vertex. Will induce today with unstable lie and continue to monitor. Initially with elevated blood pressures we will continue to monitor and treat appropriately Admit labor and delivery CEFM GBS positive: For penicillin Pitocin induction Rh-: For RhoGam Routine orders Anesthesia to see
[2020-10-05] MEDS: Oxytocin 30 units/NS 500 ml 30 UNITS/500 ML IV.SOLN IV (08:23)
[2020-10-05] MEDS: Ondansetron 4 MG/2 ML Vial IV ×4 (11:24→23:43)
[2020-10-05] MEDS: Lactated Ringers 1,000 ML 50 ML IV (17:21)
--- NOTE | 2020-10-05 17:34 | PCM.PN.OB ---
Subjective Subjective Patient feeling more uncomfortable with contractions but overall comfortable Objective Data Objective Data Vital Signs: Vital Signs Temp Pulse Resp BP Pulse Ox 98.1 F 82 18 131/84 H 99 10/05/20 17:03 10/05/20 17:04 10/05/20 06:11 10/05/20 17:03 10/05/20 17:04 Oxygen Delivery Method Room Air Weight: 282 lb 3.067 oz Body Mass Index (BMI) 40.4 Intake & Output: Intake and Output for Last 24 Hours 10/03/20 10/04/20 10/05/20 23:59 23:59 23:59 Intake Total 1953.90 / 1953.90 Output Total 2150 / 2150 Balance -196.10 / -196.10 Lab / Micro Data Result Diagrams: 10/05/20 05:30 Labs: Laboratory Results - last 24 hr 10/05/20 10/05/20 05:30 05:30 WBC 10.7 RBC 4.41 Hgb 12.4 Hct 38.4 MCV 87.1 MCH 28.1 MCHC 32.3 RDW Std Deviation 45.0 H RDW Coeff of Manas 14.4 Plt Count 257 MPV 10.8 Immature Gran % (Auto) 0.300 Neut % (Auto) 74.8 H Lymph % (Auto) 18.7 L [place] % (Auto) 5.8 Eos % (Auto) 0.1 Baso % (Auto) 0.3 Absolute Neuts (auto) 8.0 H Absolute Lymphs (auto) 1.99 Nucleated RBC % 0 Blood Type O NEGATIVE Antibody Screen NEGATIVE Micro: Microbiology 10/05/20 06:02 Mucosa - Nose SARS-CoV-2 Antigen (Rapid) - Final Physical Exam Const alert, oriented x3, no apparent distress and average body habitus HEENT normocephalic and moist oral mucous membranes Head and Scalp: atraumatic Face and Sinus: normal facial exam Neck full ROM Resp normal respiratory effort, no retractions and no use of accessory muscles GI normal to inspection, nondistended, normoactive bowel sounds Narrative: Cervical exam: 350/-3, AROM clear fluid. FSE placed Extremity normal to inspection, full ROM and no clubbing, cyanosis or edema Skin no rashes or lesions noted Psych mental status grossly normal, affect normal, speech normal and activity/motor behavior normal NST FHR Rate Baby A Baseline: 130 Variability:: Moderate Accelerations:: 15 x 15 Decelerations:: None FHR Category:: Category I Uterine Activity:: Every 2-3 minutes Assessment & Plan (1) : PLAN: Patient seen and examined. Going natural. Cervical exam as above, AROM clear fluid. FSE placed. We will continue titrate Pitocin
[2020-10-05] MEDS: Lactated Ringers 500 ML 999 ML IV (19:43)
[2020-10-05] MEDS: Acetaminophen 500 MG Tablet PO (23:43)
[2020-10-06] VITALS (31 sets, daily range): BP systolic 105–134; BP diastolic 61–81; PULSE 67–98; RESP 16–22; TEMP 36.3–37.6; O2SAT 88–99
[2020-10-06] MEDS: Lactated Ringers 500 ML 999 ML IV ×2 (00:07→03:48)
[2020-10-06] MEDS: proCHLORPERazine 10 MG/2 ML Vial IV (03:36)
[2020-10-06] MEDS: Lactated Ringers 1,000 ML 50 ML IV (08:31)
--- NOTE | 2020-10-06 10:22 | PCM.PN.OB ---
Subjective Subjective Patient going natural feeling some contractions overall very tired and emotional from long induction. Objective Data Objective Data Vital Signs: Vital Signs Temp Pulse Resp BP Pulse Ox 98.6 F 88 18 123/76 H 88 10/06/20 03:41 10/06/20 09:28 10/05/20 06:11 10/06/20 09:28 10/06/20 06:36 Oxygen Delivery Method Room Air Weight: 282 lb 3.067 oz Body Mass Index (BMI) 40.4 Intake & Output: Intake and Output for Last 24 Hours 10/04/20 10/05/20 10/06/20 23:59 23:59 23:59 Intake Total 3432.04 / 3432.04 1748.68 / 1748.68 Output Total 2850 / 2850 1750 / 1750 Balance 582.04 / 582.04 -1.32 / -1.32 Lab / Micro Data Result Diagrams: 10/05/20 05:30 Micro: Microbiology 10/05/20 06:02 Mucosa - Nose SARS-CoV-2 Antigen (Rapid) - Final Physical Exam Const alert, oriented x3 and average body habitus HEENT normocephalic and moist oral mucous membranes Head and Scalp: atraumatic Face and Sinus: normal facial exam Neck full ROM Resp normal respiratory effort, no retractions and no use of accessory muscles Narrative: Cervical exam /-3 unchanged from previous cervical exam. Mild Amount of noted. Bedside ultrasound reconfirms vertex position Extremity normal to inspection, full ROM and no clubbing, cyanosis or edema Psych mental status grossly normal, affect normal, speech normal and activity/motor behavior normal Assessment & Plan (1) : PLAN: Patient seen and examined. AROM at 1730 on 10/05/2020. Minimal change in cervix overnight. Pitocin overall titrated but could not obtain adequate MVU's without tachysystole. Educated patient on findings reconfirmed cephalic presentation via bedside ultrasound. Educated patient on expectant management with titration of Pitocin, unknown reason for lack of cervical dilation discussed possible asynclitic position with unstable lie the entire third trimester. Patient very emotional does not think she can perform any more form of induction. Desires primary section. Educated patient on primary section risk benefits alternatives including risks of future and possible need for future sections along with prolonged recovery time. Patient states understanding and wishes to proceed with elective primary section. We will give 3 g Ancef and 500 mg of azithromycin. For now, anesthesia to see
[2020-10-06] MEDS: Sodium Citrate/Citric Acid 30 ML UDC PO (10:32)
--- NOTE | 2020-10-06 11:46 | OP.PCM_ITS ---
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 Normal uterus, tubes, and ovaries. Consent: Patient arrived with unstable lie found to be cephalic for induction of labor after greater than 24 hours of induction minimal cervical progress and multi parous patient. Patient elected for primary section. Patient understands the risk of the procedure include but are not limited to visceral or vascular injury, prolonged hospitalization, blood loss and need for transfusion, reoperation. Patient stated understanding and wished to proceed. All questions were answered and consent was signed. Procedure: Patient was brought back to the OR where spinal anesthesia found to be adequate. 3 g of Ancef and 500 mg of azithromycin were given for infection prophylaxis. Patient was prepared and draped in a supine position with leftward tilt. A Pfannenstiel incision was made at the skin with a scalpel. The incision was carried down to the fascia with a scalpel. The fascia was excised and extended laterally. Inferior aspect of the fascia was grasped and the underlying rectus and pyramidalis muscle were dissected off sharply with Michaud scissors. In a similar fashion the superior aspect of the fascia was grasped and the underlying rectus muscle was dissected off sharply. Rectus muscle was dissected at the midline down to the level of pubic symphysis. Preperitoneal fatty tissue was noted and peritoneum was entered bluntly. Peritoneum was extended superiorly and inferiorly with good visualization of bladder. Bladder blade was inserted and vesicouterine peritoneum was identified. Low transverse hysterotomy was made. Hand was placed in the incision. Gentle fundal pressure was applied once the head was brought into the incision and the bladder blade was removed. Head and shoulders were delivered with ease. Cord was cut and clamped. They was handed off to nursing. Center was delivered via cord traction and fundal massage. IV oxytocin was initiated in order to facilitate uterine contractions. Uterus was exteriorized and wiped out with dry laparotomy sponges in order to remove remaining placental membranes. Uterus was closed in continuous running fashion. Second layer was performed. Good hemostasis was noted. Uterus was placed back in the abdominal cavity and incision was reinspected and good hemostasis was noted. Rectus muscle was reapproximated with horizontal mattress sutures. Fascia was closed in a continuous running fashion. Skin was closed in a subcuticular fashion. All counts correct x2. Patient tolerated procedure well and was brought to recovery in stable condition.
[2020-10-06] MEDS: Oxytocin 30 units/NS 500 ml 30 UNITS/500 ML IV.SOLN 167 UNITS IV (12:00)
[2020-10-06] MEDS: Methylergonovine 0.2 MG/ML Ampul IM (12:30)
[2020-10-06] MEDS: Ketorolac 30 MG/ML Syringe IV ×3 (12:35→23:36)
[2020-10-06] MEDS: Acetaminophen 500 MG Tablet 1000 MG PO ×2 (14:57→20:46)
[2020-10-06] MEDS: Ondansetron 4 MG/2 ML Vial IV (14:58)
[2020-10-06] MEDS: Lactated Ringers 1,000 ML 100 ML IV (14:58)
[2020-10-06] MEDS: Nalbuphine 10 MG/ML Ampul 5 MG IV (14:59)
[2020-10-06] MEDS: 0.9% Saline Lock 10 ML Syringe IV ×2 (20:54→23:36)
[2020-10-06] MEDS: DiphenhydrAMINE 25 MG Capsule PO (23:35)
[2020-10-07] VITALS (8 sets, daily range): BP systolic 103–111; BP diastolic 58–68; PULSE 80–86; RESP 16–21; TEMP 36.1–36.6; O2SAT 95–96
[2020-10-07] MEDS: Acetaminophen 500 MG Tablet 1000 MG PO ×2 (02:32→08:59)
[2020-10-07] MEDS: 0.9% Saline Lock 10 ML Syringe IV ×2 (03:30→05:35)
[2020-10-07] MEDS: Nalbuphine 10 MG/ML Ampul 5 MG IV (03:30)
[2020-10-07] MEDS: Ketorolac 30 MG/ML Syringe IV (05:35)
[2020-10-07 05:59] LABS: Hematocrit 34.5 % (37-47); Hemoglobin 11.2 g/dL (12.0-15.0); Mean Corp Hgb Conc 32.5 g/dL (32-36); Mean Corpuscular Hgb 28.1 pg (27.0-32.0); Mean Corpuscular Volume 86.5 fL (81-99); Mean Platelet Vol. 10.4 fl (6.2-12.0); Platelet Count 288 K/mm3 (150-450); RBC Distribution Width CV 14.5 % (11.6-14.6); RBC Distribution Width SD 45.1 fl (35.1-43.9); Red Blood Count 3.99 M/mm3 (4.2-5.4); White Blood Count 12.8 K/mm3 (4.4-11.0)
--- NOTE | 2020-10-07 06:44 | PCM.DC ---
Discharge Instructions Diet Discharge Diet: No restrictions Activity Discharge Activity: Return to Normal Activity May resume sexual activity in: 4-6 weeks Lifting Restrictions: No lifting over 25 pounds for 2 to 3 weeks Dressing / Incision Call your doctor if your incision/area has: Continuous Slow Oozing and Foul Smelling Discharge Call your doctor if you observe: Fever of 101 or Higher, Shortness of breath and Chest pain Follow Up Care Please Follow Up With: Larry Obrien MD When: Follow-up 2 weeks postoperative, follow-up 4 to 6 weeks Test Results: Test results from this visit will be discussed in further detail at your follow-up appointment, if applicable. Discharge Plan Admission Admit Date/Time: 10/05/20 05:00 Primary Reason for Your Visit: Induction of labor Attending Provider: Larry Obrien Instructions Patient Instructions: ED Chest Pain, Noncardiac Discharge Orders/Prescriptions Prescriptions: New oxycodone 5 mg Tablet 5 mg PO Q6H PRN (Reason: pain (scale score 7-10)) 4 Days Qty: 16 RF: 0 Continued prenat.vits,hamida,[id number]-dtjgi Tablet 1 tab PO DAILY RF: 0 ondansetron HCl [Zofran] 4 mg Tablet 4 mg PO Q6H PRN (Reason: Nausea) RF: 0 Discontinued aspirin 81 mg Tablet 81 mg PO DAILY RF: 0 Referrals / Follow Up: GLENN KRAUS [Other] Disposition Discharge Orders: Discharge Patient (Routine); Ordered 10/07/20 Ordered By: Dr. Larry Obrien
--- NOTE | 2020-10-07 06:45 | PN.OBGYN_ITS ---
Subjective Subjective No overnight complaints. Pain well controlled. Objective Data Objective Data Vital Signs: Vital Signs Temp Pulse Resp BP Pulse Ox 97.6 F L 86 20 H 108/58 L 96 10/07/20 03:36 10/07/20 05:50 10/07/20 03:36 10/07/20 03:36 10/07/20 05:50 Oxygen Delivery Method Room Air Weight: 282 lb 3.067 oz Body Mass Index (BMI) 40.4 Intake & Output: Intake and Output for Last 24 Hours 10/05/20 10/06/20 10/07/20 23:59 23:59 23:59 Intake Total 3432.04 / 3432.04 3512.02 / 3512.02 Output Total 2850 / 2850 3150 / 3150 900 / 900 Balance 582.04 / 582.04 362.02 / 362.02 -900 / -900 Lab / Micro Data Result Diagrams: 10/07/20 05:48 Labs: Laboratory Results - last 24 hr 10/06/20 10/07/20 14:45 05:48 WBC 12.8 H RBC 3.99 L Hgb 11.2 L Hct 34.5 L MCV 86.5 MCH 28.1 MCHC 32.5 RDW Std Deviation 45.1 H RDW Coeff of Manas 14.5 Plt Count 288 MPV 10.4 Screen NEGATIVE Baby's Blood Type O POSITIVE Baby's JAX NEGATIVE Micro: Microbiology 10/05/20 06:02 Mucosa - Nose SARS-CoV-2 Antigen (Rapid) - Final Physical Exam Const alert, oriented x3, no apparent distress and average body habitus HEENT normocephalic and moist oral mucous membranes Head and Scalp: atraumatic Face and Sinus: normal facial exam Neck full ROM Resp normal respiratory effort, no retractions and no use of accessory muscles GI normal to inspection, nondistended, normoactive bowel sounds Extremity normal to inspection, full ROM and no clubbing, cyanosis or edema Skin no rashes or lesions noted Psych mental status grossly normal, affect normal, speech normal and activity/motor behavior normal Assessment & Plan (1) delivery delivered: PLAN: Postop day 1 status post elective primary section. Pain well controlled. Breast-feeding. Desires discharge home, okay to discharge home if okay with administrative underwriter.
[2020-10-07] MEDS: Enoxaparin 40 MG/0.4 ML Syringe SC (10:57)
[2020-10-07] MEDS: Ibuprofen 600 MG Tablet PO (12:26)
--- NOTE | 2020-10-11 15:58 | NURSING ---
Mother doing well, baby nursing well , really liked Minerva Montoya Kirsten
== END 2020-10-07 15:00 | disposition home or self-care (01) | DRG 788 ==
PROVIDERS: Admitting Provider Obstetrics & Gynecology; Visit Provider Obstetrics & Gynecology
PROC: 3E033VJ Introduction of Other Hormone into Peripheral Vein, Percutaneous Approach (ICD-10-PCS; CPT 59514; principal; 2020-10-05 07:15)
DX: O32.0XX0 Maternal care for unstable lie, not applicable or unspecified (principal); O99.824 Streptococcus B carrier state complicating childbirth; Z20.822 Contact with and (suspected) exposure to COVID-19; Z3A.39 39 weeks gestation of pregnancy; Z37.0 Single live birth
CPT/HCPCS: 59025; 59050; 76815; 85025; 85027; 85461; 86850; 86900; 86901; 87426; 90384; 99218; J7120; A4216; G0378; J2405; J2790

== ENCOUNTER 2020-12-05 13:28 | Emergency (ER) | payer OTHER, MEDICAID, SELFPAY ==
[2020-12-05 13:30] VITALS: BP 124/77; PULSE 105; RESP 18; TEMP 36.3; O2SAT 94; BMI 35.6
[2020-12-05 13:31] VITALS: BP 124/77; PULSE 105; RESP 18; TEMP 36.3; O2SAT 94
--- NOTE | 2020-12-05 13:45 | RAD_ITS ---
STUDY: X-RAY CHEST REASON FOR EXAM: Female, 30 years old. COVID TECHNIQUE: Single AP portable view of the chest. COMPARISON: Comparison is made with prior study 07/21/2018. FINDINGS: Patchy bibasilar infiltrates slightly worse on the left side. There is no demonstrated pleural abnormality. Normal size heart. Normal mediastinum and irwin. Normal visualized pulmonary arteries. Normal visualized aortic arch and descending thoracic aorta. Normal visualized thoracic spine. Normal visualized ribs, clavicles, and shoulders. There is no demonstrated abnormality of the visualized soft tissue structures of the upper abdomen. RAD/Chest 1 View IMPRESSION: Patchy bibasilar infiltrates slightly worse on the left lung base. Electronically Signed: aDwson Miles MD at 14:12 EDT , Service support ,
--- NOTE | 2020-12-05 14:11 | EX.ED.DYSGE1 ---
HPI History of Present Illness Chief Complaint: General Illness Detail of Chief Complaint: Breath and chest pain related to COVID-19 Informant: patient Narrative Narrative: Patient presents to the emergency department stating that she tested positive for COVID-19 5 days ago. Patient states that 2 weeks ago she tested positive for strep throat and had been on amoxicillin. Over the last 3 to 4 days she has had increasing shortness of breath with activity and exertion. She complains of generalized malaise and fatigue. She has a cough and has been running fever up to 104 at times. Patient has lost taste and smell. Patient states that she has been able to stay hydrated. Patient otherwise has no medical history. Patient was not vaccinated against Covid. Patient states she had a about 7 weeks ago. Prior similar symptoms: No PFSH PFSH Medical History (Updated 12/05/20 @ 15:[address] Guerline Venegas, DO) Anxiety Asthma Borderline diabetes mellitus Depression Hidradenitis High blood pressure affecting , antepartum Obesity (BMI 30-39.9) PCOS (polycystic ovarian syndrome) Polycystic ovarian syndrome Pre-eclampsia Seasonal allergies Sleep apnea Tachycardia Home Medications ondansetron HCl [Zofran] 4 mg PO Q6H PRN 09/13/20 [History Last Taken 09/13/20] prenat.vits,hamida,jik-zodl-aquyl 1 tab PO DAILY 09/13/20 [History Last Taken 10/05/20] oxycodone 5 mg PO Q6H PRN 4 Days #16 cap 10/07/20 [Rx Last Taken Unknown] Allergy/AdvReac Type Severity Reaction Status Date / Time grass pollen Allergy Mild watery Verified 12/05/20 13:31 eyes, sneezing hydrocodone bitartrate Allergy Hives Verified 12/05/20 13:31 [From Vicodin] Sulfa (Sulfonamide Allergy Rash Verified 12/05/20 13:31 Antibiotics) animal long hair Allergy Intermediate Hives Uncoded 12/05/20 13:31 Family History Grandfather Angina pectoris Myocardial infarction Hypertension COPD (chronic obstructive pulmonary disease) From [place] CVA (cerebral vascular accident) Grandmother Lupus PCOS (polycystic ovarian syndrome) Diabetes Grandmother Rheumatoid arthritis Cervical cancer Mother Hypertension hormone probms PCOS (polycystic ovarian syndrome) Thyroid cancer Sister Multiple allergies Surgical History History of cholecystectomy Social History Smoking Status: Never smoker alcohol intake: current alcohol intake frequency: holidays/special occasions only substance use type: does not use caffeine: Yes what type of physical activity do you participate in: none and walking frequency: 3-4 times per week seatbelt use: always do you feel safe at home: Yes additional social history: [employer] Patient works [employer] ROS ROS ED Constitutional Constitutional ED: Reports systems reviewed and no addt'l complaints, except as documented, chills, fever(s) and sweats; Denies body ache(s) or change in weight Eyes Eyes: Denies acute decrease in peripheral vision, change in vision, double vision or loss of vision ENT ENT ED: Reports none and sore throat; Denies ear pain, lip swelling, loss taste/smell, neck pain or otalgia Cardiovascular Cardiovascular: Reports none and chest pain; Denies abdominal pain, chest pain with activity, leg edema, lightheadedness, palpitations, rapid heart rate or syncope Respiratory/Chest Respiratory/Chest: Reports none, cough and dyspnea on exertion; Denies change in mental status, dry cough, dyspnea, hemoptysis, shortness of breath at rest or shortness of breath with exertion Gastrointestinal Gastrointestinal: Reports none; Denies abdominal pain, change in stool character, diarrhea, hematemesis, hematochezia, melena, rectal bleeding or vomiting Genitourinary Genitourinary ED: Reports none; Denies abdominal discomfort, anuria, dysuria, genital pain or polyuria Musculoskeletal Musculoskeletal: Reports none and myalgias; Denies arthralgias, back pain, difficulty walking, extremity pain or muscle weakness Integumentary Reports none; Denies abscess or rash Neurologic Neurologic: Reports none; Denies abnormal gait, confusion, focal weakness, frequent falls, headache(s), loss of vision, numbness, paresthesias, radicular pain, vertigo or weakness Psychiatric Psychiatric: Reports systems reviewed and no addt'l complaints, except as documented and none; Denies behavioral changes, confusion, difficulty concentrating, hallucinations, suicidal ideation, tactile hallucinations or visual hallucinations Endocrine Endocrinology: Denies none, cold intolerance, excessive sweating, fatigue or heat intolerance Hematologic/Lymphatic Hematologic/Lymphatic: Reports none; Denies anemia, easy bleeding or easy bruising Allergic/Immunologic Allergic/Immunologic ED: Denies as per HPI, none, lip swelling, mouth swelling, throat swelling, tongue swelling or hives EXAM Physical Exam Const Vital Signs: 12/05/20 13:30 12/05/20 13:31 Temperature 97.4 F L 97.4 F L Temperature Source Temporal Temporal Pulse Rate 105 H 105 H Respiratory Rate 18 18 Blood Pressure 124/77 H 124/77 H Blood Pressure Mean 92 92 Pulse Ox 94 94 Oxygen Delivery Method Room Air Room Air Positive well nourished and well developed General Appearance ED: well developed and NAD HEENT Reports TM's clear and moist mucous membranes normocephalic and atraumatic; Negative for trauma or tenderness Tympanic Membrane ED: Yes TM's clear Eyes PERRL and EOMs intact bilaterally General Eye ED: Negative for pale conjunctiva or scleral icterus Neck no lymphadenopathy, supple and no JVD General: Negative for tenderness Chest Wall inspection of chest normal and palpation of chest normal Chest: Negative for tenderness Resp normal respiratory effort and clear to auscultation bilaterally Effort and Inspection: Negative for respiratory distress or pain with movement Auscultation: Negative for rhonchi, wheezes or diminished lung sounds Cardio regular rhythm, S1 normal heart sound, S2 normal heart sound and no murmurs Rate: tachycardic Peripheral Pulses: pulses 2+ throughout GI normal to inspection, nondistended, normoactive bowel sounds, soft to palpation, non-tender, non-distended and no masses Back/Spine no CVA tenderness and no thoracic nor lumbar tenderness Extremity normal to inspection General Extremety ED: Negative for edema General Extremity: Negative for edema Neuro oriented x3, CN's II-XII intact bilaterally, no sensory deficits noted and gait normal Sensorium / Orientation: awake, alert, oriented to person, oriented to place and oriented to time Motor Exam: strength 5/5 throughout and strength abnormal Psych mental status grossly normal Skin no rashes or lesions noted and no wounds MDM MDM MDM Narrative Medical decision making narrative: Patient looks well and nontoxic. She is in no respiratory distress. Her work-up otherwise unremarkable. She does have evidence of Covid pneumonia on x-ray and CT scan without evidence of PE. Patient advised to return if increasing shortness of breath or condition should worsen anyway. Patient to follow-up with her primary care physician in 5 to 7 days. Lab Data Attestation: I reviewed the patient's lab results. Labs: Laboratory Results - last 24 hr 12/05/20 12/05/20 12/05/20 14:25 14:25 14:25 WBC 4.7 RBC 4.94 Hgb 13.1 Hct 41.2 MCV 83.4 MCH 26.5 L MCHC 31.8 L RDW Std Deviation 41.3 RDW Coeff of Manas 13.7 Plt Count 213 MPV 10.5 Immature Gran % (Auto) 0.200 Neut % (Auto) 68.2 Lymph % (Auto) 23.8 Ripley % (Auto) 7.6 Eos % (Auto) 0.0 Baso % (Auto) 0.2 Absolute Neuts (auto) 3.2 Absolute Lymphs (auto) 1.12 Nucleated RBC % 0 D-Dimer Quant (PE/DVT) 1.11 H* Sodium 137 Potassium 3.4 L Chloride 102 Carbon Dioxide 29.0 Anion Gap 6 BUN 9 Creatinine 0.86 Estim Creat Clear Calc 108.85 Est GFR (MDRD) Af Amer 101 Est GFR (MDRD) Non-Af 84 BUN/Creatinine Ratio 10.5 Glucose 105 Calcium 8.1 L Radiography Chest X-Ray - ED: 1 View Diagnostic Testing: Radiology Impression Chest X-Ray 12/05/20 13:45 IMPRESSION: Patchy bibasilar infiltrates slightly worse on the left lung base. Electronically Signed: Dawson Miles MD at 14:12 EDT , Service support , Chest CTA 12/05/20 14:49 IMPRESSION: No evidence of pulmonary embolism. Patchy bilateral areas of alveolar densities as described. Pneumonitis associated with Covid should be considered. Electronically Signed: Dawson Miles MD at 15:27 EDT , Service support , 1 view chest x-ray obtained interpreted by myself as bilateral lower lobe infiltrates. Radiology in agreement. Discharge Plan Triage Chief Complaint: General Illness ED Provider: Guerline Venegas Dx/Rx/DC Orders Clinical Impression: COVID-19 Instructions: Caring for Someone Who Has COVID-19, Symptoms of COVID-19 Infection Prescriptions: No Action prenat.vits,hamida,guo-fzod-mcdhc Tablet 1 tab PO DAILY RF: 0 ondansetron HCl [Zofran] 4 mg Tablet 4 mg PO Q6H PRN (Reason: Nausea) RF: 0 oxycodone 5 mg capsule 5 mg PO Q6H PRN (Reason: pain (scale score 7-10)) 4 Days Qty: 16 RF: 0 Referrals: Cheri Sherman [Other] Activity Restrictions/Additional Instructions: Follow-up with your family doctor in 5 to 7 days. Return if increasing shortness of breath or condition should worsen anyway. Disposition Disposition: Home, Self Care
[2020-12-05 14:31] LABS: Absolute Lymphocyte Count 1.12 X10^3/uL (0.83-4.51); Absolute Neutrophil Count 3.2 X10^3/uL (2.0-7.7); Basophil# 0.01 X10^3/uL; Basophil% 0.2 % (0-1); Hematocrit 41.2 % (37-47); Hemoglobin 13.1 g/dL (12.0-15.0); Lymphocyte # 1.12 X10^3/ul (0.83-4.51); Lymphocyte % 23.8 % (19-41); Mean Corp Hgb Conc 31.8 g/dL (32-36); Mean Corpuscular Hgb 26.5 pg (27.0-32.0); Mean Corpuscular Volume 83.4 fL (81-99); Mean Platelet Vol. 10.5 fl (6.2-12.0); Monocyte# 0.36 X10^3/uL; Monocyte% 7.6 % (0-10); NRBC Flagged by Analyzer 0 % (0-5); Neutrophil # 3.21 X10^3/uL (2.7-7.7); Neutrophil % 68.2 % (47-70); Platelet Count 213 K/mm3 (150-450); RBC Distribution Width CV 13.7 % (11.6-14.6); RBC Distribution Width SD 41.3 fl (35.1-43.9); Red Blood Count 4.94 M/mm3 (4.2-5.4); White Blood Count 4.7 K/mm3 (4.4-11.0)
[2020-12-05 14:45] LABS: Anion Gap 6 (5-15); BUN 9 mg/dL (7-18); BUN/Creat Ratio 10.5 RATIO (10-20); Calcium,Total 8.1 mg/dL (8.5-10.1); Chloride 102 mmol/L (98-107); Creatinine, Serum 0.86 mg/dL (0.55-1.02); D-Dimer Quantitative (DVT/PE) 1.11 FEU/ug/m (0.27-0.49); EST Glomerular Filtration Rate 84 mL/min (>60); Est Glom Filt Rate - Afr Amer 101 mL/min (>60); Estimated Creatinine Clearance 108.85 ml/min; Glucose 105 mg/dL (74-106); Potassium 3.4 mmol/L (3.5-5.1); Sodium Level 137 mmol/L (136-145)
--- NOTE | 2020-12-05 14:49 | CT_ITS ---
STUDY: CTA CHEST REASON FOR EXAM: Female, 30 years old. Elevated d-dimer. Covid positive. 7 weeks . RADIATION DOSAGE (If Supplied By Facility): CTDIvol = ( 13.85 ) mGy, DLP = ( 470.89 ) mGycm TECHNIQUE: The examination was performed with the intravenous administration of IV 100mL Isovue-370. Post-processing of the angiographic images was performed, with multiplanar reformation and 3D reconstruction. Individualized dose optimization techniques were used for this CT. COMPARISON: Comparison is made with prior chest radiograph done earlier in the day. FINDINGS: Normal enhancement of the main pulmonary artery and right and left pulmonary arteries. Normal enhancement of the bilateral peripheral pulmonary arteries. There is no demonstrated pulmonary embolism. Normal thoracic aorta and visualized great vessels. There is no demonstrated aortic dissection. Normal heart and pericardium. Normal mediastinum. Normal hilar regions. Normal visualized trachea and bronchi. The lungs are well expanded. Patchy alveolar infiltrates in the preferential bilateral peripheral distribution. This is worse in the lower lobes. Pneumonitis associated with Covid should be ruled out. Normal pleura. Normal chest wall structures. Normal osseous structures. Small hiatal hernia. CT/CTA Chest W/WO Contrast IMPRESSION: No evidence of pulmonary embolism. Patchy bilateral areas of alveolar densities as described. Pneumonitis associated with Covid should be considered. Electronically Signed: Dawson Miles MD at 15:27 EDT , Service support ,
[2020-12-05 15:56] VITALS: O2SAT 95
== END 2020-12-05 16:00 | disposition home or self-care (01) ==
PROVIDERS: Emergency Provider Emergency Medicine
DX: U07.1 COVID-19 (principal); R73.03 Prediabetes; J45.909 Unspecified asthma, uncomplicated; E28.2 Polycystic ovarian syndrome
CPT/HCPCS: 71045; 71275; 80048; 85025; 85379; 99283; Q9967; A4216

== ENCOUNTER → 2021-07-22 | Outpatient (CLI) | payer MEDICAID, SELFPAY ==
[2021-07-28 15:43] LABS: HPV Reflexed? NOT INDICATED
== END | disposition home or self-care (01) ==
LOC: LABSPEC 12:01
PROVIDERS: Visit Provider Obstetrics & Gynecology
DX: Z12.4 Encounter for screening for malignant neoplasm of cervix (principal)
CPT/HCPCS: 88175; G0145

== ENCOUNTER → 2022-05-23 | Outpatient (CLI) | payer MEDICAID, SELFPAY ==
--- NOTE | 2022-05-23 16:39 | MRI_ITS ---
EXAM: MR LEFT LOWER EXTREMITY WITHOUT INTRAVENOUS CONTRAST, KNEE CLINICAL INDICATION: Pain TECHNIQUE: Multiplanar and multisequence MR images of the left knee without intravenous contrast. This report was created using [employer] report generation technology. COMPARISON: X-ray 04/30/2022. FINDINGS: BONES/JOINTS: Unremarkable. No fracture. No abnormal bone marrow signal. No synovial hypertrophy. No intra-articular body. EXTENSOR MECHANISM: Unremarkable. MEDIAL MENISCUS: Unremarkable. LATERAL MENISCUS: Unremarkable. MEDIAL CAPSULE/SUPPORTING STRUCTURES: Unremarkable. Intact. LATERAL CAPSULE/SUPPORTING STRUCTURES: Unremarkable. Lateral collateral ligamentous complex, inclusive of the popliteal tendon, are intact. ANTERIOR CRUCIATE LIGAMENT: Unremarkable. Intact. POSTERIOR CRUCIATE LIGAMENT: Unremarkable. Intact. MUSCLES: Unremarkable. CARTILAGE: Unremarkable. Intact. FLUID: Unremarkable. No joint effusion. OTHER SOFT TISSUES: Unremarkable. No popliteal cyst. MRI/Lower Ext Joint Only (Routine) IMPRESSION: Normal left knee MRI. Electronically Signed: Jaz Aguero MD at 20:50 EST Reading Location ID and State: [id number] / Tel , Service support ,
== END | disposition home or self-care (01) ==
LOC: MRI 16:39
PROVIDERS: PCP Family Medicine
DX: M23.92 Unspecified internal derangement of left knee (principal)
CPT/HCPCS: 73721